=== PATIENT | male | born 1980 | race Two or more races ===

== ENCOUNTER 2023-07-13 22:39 | Inpatient (IN) | payer OTHER ==
[2023-07-13 23:00] VITALS: BMI 24.6
[2023-07-14] MEDS ORDERED: MAGNESIUM HYDROX 2400MG/30ML ORAL SUSPENSION 30 ML CUP PO PRN (00:32)
[2023-07-14] MEDS ORDERED: LOPERAMIDE HCL 2 MG CAPSULE PO PRN (00:32)
[2023-07-14] MEDS ORDERED: ACETAMINOPHEN 325 MG TABLET (FP) PO PRN (00:32)
[2023-07-14] MEDS ORDERED: IBUPROFEN 400 MG TABLET (FP) PO PRN (00:32)
[2023-07-14] MEDS ORDERED: NALOXONE HCL 0.4 MG/ML VIAL IM PRN (00:32)
[2023-07-14] MEDS ORDERED: BENZONATATE 200 MG CAPSULE PO PRN (00:32)
[2023-07-14] MEDS ORDERED: guaiFENesin 600 MG TABLET.ER (FP) PO PRN (00:32)
[2023-07-14] MEDS ORDERED: BISMUTH SUBSALICYLATE 524 MG/30 ML PO PRN (00:32)
[2023-07-14] MEDS ORDERED: BENZOCAINE/MENTHOL (CHLORASEPTIC ) LOZENGE MM PRN (00:32)
[2023-07-14] MEDS ORDERED: MAG HYDROX/AL HYDROX/SIMETH 30 ML UNIT-DOSE CUP PO PRN (00:32)
[2023-07-14] MEDS ORDERED: NALOXONE HCL (KLOXXADO) 8 MG SPRAY NS PRN (00:32)
[2023-07-14] MEDS ORDERED: NICOTINE POLACRILEX 2 MG GUM BUC PRN (00:32)
[2023-07-14] MEDS ORDERED: POLYETHYLENE GLYCOL (HEALTHYLAX) 3350 17 GM PACKET PO PRN (00:32)
[2023-07-14] MEDS ORDERED: cloNIDine HCL 0.1 MG TABLET PO PRN (00:34)
[2023-07-14] MEDS: methaDONE HCL 10 MG TABLET (FOR DETOX USE ONLY) PO ONE ×2 (01:33→10:47)
[2023-07-14] MEDS ORDERED: methaDONE HCL 10 MG TABLET (FOR DETOX USE ONLY) ONE (01:54)
[2023-07-14] MEDS: PRENATAL VITAMINS W/ FOLIC ACID TABLET (FP) PO SCH (10:47)
[2023-07-14] MEDS: METHOCARBAMOL 500 MG TABLET PO PRN (10:47)
[2023-07-14] MEDS: NICOTINE 14 MG/24 HOURS TOPICAL PATCH TD SCH (10:55)
[2023-07-14] MEDS: THIAMINE HCL 100 MG TABLET (FP) PO SCH (22:43)
[2023-07-14] MEDS: cloNIDine HCL 0.1 MG TABLET PO PRN (22:43)
[2023-07-14] MEDS: MELATONIN 5 MG TABLETS PO SCH (22:43)
[2023-07-15 15:16] LABS: BASO % 0.2 % (0-2.0); HEMOGLOBIN 12.8 GM/dL (11.7-16.9); LYMPH % 20.6 % (8-40); MCH 26.9 pg (25.7-33.7); MCHC 32.9 g/dl (32.0-35.9); MEAN CELL VOLUME 81.8 fl (80-96); MONO % 9.3 % (3.8-10.2); NEUT % 69.9 % (42.8-82.8); PLATELET COUNT 286 10^3/uL (134-434); RBC 4.77 M/mm3 (4.00-5.60); RDW 15.2 % (11.9-15.9); WHITE BLOOD COUNT 7.1 K/mm3 (4.0-10.0)
[2023-07-15 17:51] LABS: BLOOD UREA NITROGEN 8.4 mg/dL (7-18); CALCIUM 9.4 mg/dL (8.5-10.1)
[2023-07-15 17:53] LABS: POTASSIUM 4.4 mmol/L (3.5-5.1)
[2023-07-15] MEDS: ONDANSETRON *ODT* 4 MG TABLET SL PRN (18:01)
[2023-07-16] MEDS: IBUPROFEN 600 MG TABLET (FP) PO PRN (01:06)
[2023-07-16] MEDS: methaDONE HCL 10 MG TABLET (FOR DETOX USE ONLY) PO ONE (09:25)
[2023-07-16] MEDS: hydrOXYzine PAMOATE 25 MG CAPSULE (FP) PO PRN (09:25)
[2023-07-16] MEDS ORDERED: methaDONE HCL 10 MG TABLET (FOR DETOX USE ONLY) PO ONE (10:00)
[2023-07-16] MEDS: diazePAM 5 MG TABLET PO ONE (18:36)
[2023-07-17] MEDS: DICYCLOMINE HCL 10 MG CAPSULE PO PRN (09:24)
[2023-07-18] MEDS ORDERED: methaDONE HCL 10 MG TABLET (FOR DETOX USE ONLY) PO ONE (10:00)
[2023-07-18] MEDS: methaDONE HCL 10 MG TABLET (FOR DETOX USE ONLY) PO ONE (10:44)
[2023-07-18 20:50] VITALS: RESP 18
[2023-07-18] MEDS: QUEtiapine FUMARATE 25 MG TABLET PO ONE (22:23)
[2023-07-19 08:55] VITALS: BP 132/67; PULSE 66; TEMP 97.6
== END 2023-07-19 10:09 | disposition home or self-care (01) | DRG 773 ==
LOC: YASAS 22:39 → Y3N 07-14 02:07
PROVIDERS: ADMIT Allergy & Immunology; ATTEND Surgery
PROC: HZ2ZZZZ Detoxification Services for Substance Abuse Treatment (ICD-10-PCS; principal; 2023-07-14)
DX: F11.23 Opioid dependence with withdrawal (principal); F14.20 Cocaine dependence, uncomplicated; F12.20 Cannabis dependence, uncomplicated; F17.210 Nicotine dependence, cigarettes, uncomplicated; F41.9 Anxiety disorder, unspecified; G47.00 Insomnia, unspecified
CPT/HCPCS: 36415; 80048; 85025; 93005; 93010; Q0162

== ENCOUNTER 2023-08-29 18:58 | Inpatient (IN) | payer OTHER ==
[2023-08-29 19:50] VITALS: BMI 25.0
[2023-08-29] MEDS ORDERED: MAG HYDROX/AL HYDROX/SIMETH 30 ML UNIT-DOSE CUP PO PRN (20:43)
[2023-08-29] MEDS ORDERED: IBUPROFEN 400 MG TABLET (FP) PO PRN (20:43)
[2023-08-29] MEDS ORDERED: LOPERAMIDE HCL 2 MG CAPSULE PO PRN (20:43)
[2023-08-29] MEDS ORDERED: MAGNESIUM HYDROX 2400MG/30ML ORAL SUSPENSION 30 ML CUP PO PRN (20:43)
[2023-08-29] MEDS ORDERED: guaiFENesin 600 MG TABLET.ER (FP) PO PRN (20:43)
[2023-08-29] MEDS ORDERED: BENZONATATE 200 MG CAPSULE PO PRN (20:43)
[2023-08-29] MEDS ORDERED: NICOTINE POLACRILEX 2 MG GUM BUC PRN (20:43)
[2023-08-29] MEDS ORDERED: ACETAMINOPHEN 325 MG TABLET (FP) PO PRN (20:43)
[2023-08-29] MEDS ORDERED: NALOXONE HCL 0.4 MG/ML VIAL IM PRN (20:43)
[2023-08-29] MEDS ORDERED: BENZOCAINE/MENTHOL (CHLORASEPTIC ) LOZENGE MM PRN (20:43)
[2023-08-29] MEDS ORDERED: NALOXONE HCL (KLOXXADO) 8 MG SPRAY NS PRN (20:43)
[2023-08-29] MEDS ORDERED: BISMUTH SUBSALICYLATE 524 MG/30 ML PO PRN (20:43)
[2023-08-29] MEDS ORDERED: POLYETHYLENE GLYCOL (HEALTHYLAX) 3350 17 GM PACKET PO PRN (20:43)
[2023-08-29] MEDS ORDERED: cloNIDine HCL 0.1 MG TABLET PO PRN (20:45)
[2023-08-29] MEDS ORDERED: methaDONE HCL 10 MG TABLET ONE (21:04)
[2023-08-29] MEDS: methaDONE HCL 10 MG TABLET (FOR DETOX USE ONLY) PO ONE (21:11)
[2023-08-29] MEDS: MELATONIN 5 MG TABLETS PO SCH (22:36)
[2023-08-29] MEDS: THIAMINE 100 MG TABLET PO SCH (22:36)
[2023-08-30] MEDS: NICOTINE 14 MG/24 HOURS TOPICAL PATCH TD SCH (09:33)
[2023-08-30] MEDS: PRENATAL VITAMINS W/ FOLIC ACID TABLET (FP) PO SCH (09:33)
[2023-08-30] MEDS: cloNIDine HCL 0.1 MG TABLET PO ONE (12:44)
[2023-08-30] MEDS: hydrOXYzine PAMOATE 25 MG CAPSULE (FP) PO PRN (12:44)
[2023-08-30] MEDS: METHOCARBAMOL 500 MG TABLET PO PRN (12:44)
[2023-08-30] MEDS: ONDANSETRON *ODT* 4 MG TABLET SL PRN (12:47)
[2023-08-30] MEDS: diazePAM 5 MG TABLET PO PRN (15:08)
[2023-08-30] MEDS: amLODIPine BESYLATE 10 MG TABLET (FP) PO SCH (17:25)
[2023-08-30] MEDS: diazePAM 5 MG TABLET PO SCH (17:26)
[2023-08-30] MEDS: IBUPROFEN 600 MG TABLET (FP) PO PRN (22:56)
[2023-08-30] MEDS: P-EPHED 60MG/TRIPROLIDI 2.5MG TABLET PO PRN (23:04)
[2023-08-31] MEDS: DICYCLOMINE HCL 10 MG CAPSULE PO PRN (02:13)
[2023-08-31] MEDS: TRIMETHOBENZAMIDE HCL 200MG/2ML INJ IM ONE (03:40)
[2023-08-31 05:44] VITALS: RESP 16
[2023-08-31 06:27] VITALS: BP 169/86; PULSE 67; TEMP 98.7
[2023-08-31] MEDS ORDERED: methaDONE HCL 10 MG TABLET (FOR DETOX USE ONLY) PO ONE (10:00)
[2023-09-01] MEDS ORDERED: diazePAM 5 MG TABLET PO SCH (06:00)
[2023-09-02] MEDS ORDERED: diazePAM 5 MG TABLET PO SCH (06:00)
[2023-09-02] MEDS ORDERED: methaDONE HCL 10 MG TABLET (FOR DETOX USE ONLY) PO ONE (10:00)
[2023-09-03] MEDS ORDERED: diazePAM 5 MG TABLET PO ONE (06:00)
== END 2023-08-31 07:04 | disposition left against medical advice (07) | DRG 770 ==
LOC: YASAS 18:58 → Y3N 21:00
PROVIDERS: ADMIT Allergy & Immunology; ATTEND Surgery
PROC: HZ2ZZZZ Detoxification Services for Substance Abuse Treatment (ICD-10-PCS; principal; 2023-08-29)
DX: F11.23 Opioid dependence with withdrawal (principal); F14.20 Cocaine dependence, uncomplicated; F17.210 Nicotine dependence, cigarettes, uncomplicated; I10 Essential (primary) hypertension
CPT/HCPCS: 80305; 93005; 93010; Q0162

== ENCOUNTER 2023-10-08 13:16 | Inpatient (IN) | payer OTHER ==
[2023-10-08 14:01] VITALS: BMI 19.8
[2023-10-08] MEDS ORDERED: hydrOXYzine PAMOATE 25 MG CAPSULE (FP) PO PRN (15:59)
[2023-10-08] MEDS ORDERED: BENZONATATE 200 MG CAPSULE PO PRN (15:59)
[2023-10-08] MEDS ORDERED: LOPERAMIDE HCL 2 MG CAPSULE PO PRN (15:59)
[2023-10-08] MEDS ORDERED: ACETAMINOPHEN 325 MG TABLET (FP) PO PRN (15:59)
[2023-10-08] MEDS ORDERED: IBUPROFEN 400 MG TABLET (FP) PO PRN (15:59)
[2023-10-08] MEDS ORDERED: chlordiazePOXIDE HCL 25 MG CAPSULE PO PRN (16:01)
[2023-10-08] MEDS ORDERED: cloNIDine HCL 0.1 MG TABLET PO PRN (16:01)
[2023-10-08] MEDS ORDERED: methaDONE HCL 10 MG TABLET (FOR DETOX USE ONLY) ONE (16:40)
[2023-10-08] MEDS ORDERED: chlordiazePOXIDE HCL 25 MG CAPSULE ONE (16:40)
[2023-10-08] MEDS: methaDONE HCL 10 MG TABLET (FOR DETOX USE ONLY) PO ONE (16:41)
[2023-10-08] MEDS: chlordiazePOXIDE HCL 25 MG CAPSULE PO SCH (16:42)
[2023-10-08 18:15] VITALS: RESP 18
[2023-10-08] MEDS: METHOCARBAMOL 500 MG TABLET PO PRN (23:03)
[2023-10-09 09:24] VITALS: BP 179/89; PULSE 62; TEMP 98.1
[2023-10-09] MEDS: ONDANSETRON *ODT* 4 MG TABLET SL PRN (09:52)
[2023-10-09] MEDS: PRENATAL VITAMINS W/ FOLIC ACID TABLET (FP) PO SCH (10:54)
[2023-10-09] MEDS: THIAMINE 100 MG TABLET PO SCH (10:54)
[2023-10-09 11:23] LABS: MCH 26.6 pg (25.7-33.7); MCHC 33.2 g/dl (32.0-35.9); MEAN CELL VOLUME 80.1 fl (80-96); MEAN PLT VOLUME 7.6 fl (7.5-11.1); PLATELET COUNT 315 10^3/uL (134-434); POTASSIUM 4.5 mmol/L (3.5-5.1); RBC 4.49 M/mm3 (4.00-5.60); RDW 16.1 % (11.9-15.9)
[2023-10-09 11:28] LABS: CALCIUM 9.2 mg/dL (8.5-10.1)
[2023-10-09 11:29] LABS: ALBUMIN 3.8 g/dl (3.4-5.0); BLOOD UREA NITROGEN 11.5 mg/dL (7-18)
[2023-10-09 11:32] LABS: BILIRUBIN,TOTAL 0.5 mg/dL (0.2-1); CREATININE 0.8 mg/dL (0.55-1.3); TOT PROT 7.8 g/dl (6.4-8.2)
[2023-10-10] MEDS ORDERED: chlordiazePOXIDE HCL 25 MG CAPSULE PO SCH (05:00)
[2023-10-10] MEDS ORDERED: methaDONE HCL 10 MG TABLET (FOR DETOX USE ONLY) PO ONE (10:00)
[2023-10-11] MEDS ORDERED: chlordiazePOXIDE HCL 10 MG CAPSULE PO PRN
[2023-10-11] MEDS ORDERED: chlordiazePOXIDE HCL 10 MG CAPSULE PO SCH (05:00)
[2023-10-12] MEDS ORDERED: chlordiazePOXIDE HCL 10 MG CAPSULE PO SCH (05:00)
[2023-10-12] MEDS ORDERED: methaDONE HCL 10 MG TABLET (FOR DETOX USE ONLY) PO ONE (10:00)
[2023-10-13] MEDS ORDERED: chlordiazePOXIDE HCL 10 MG CAPSULE PO ONE (05:00)
== END 2023-10-09 11:54 | disposition left against medical advice (07) | DRG 770 ==
LOC: YASAS 13:16 → Y3N 17:05
PROVIDERS: ADMIT Allergy & Immunology; ATTEND Surgery
PROC: HZ2ZZZZ Detoxification Services for Substance Abuse Treatment (ICD-10-PCS; principal; 2023-10-08)
DX: F11.23 Opioid dependence with withdrawal (principal); F13.20 Sedative, hypnotic or anxiolytic dependence, uncomplicated; F14.20 Cocaine dependence, uncomplicated; F12.20 Cannabis dependence, uncomplicated; F17.210 Nicotine dependence, cigarettes, uncomplicated; Z56.0 Unemployment, unspecified; Z59.00 Homelessness unspecified
CPT/HCPCS: 36415; 80053; 80305; 80307; 85027; 86780; 93005; 93010; Q0162